=== PATIENT | male | born 1975 | race Caucasian/White ===

== ENCOUNTER 2020-10-21 16:23 | Emergency (ER) | payer OTHER, SELFPAY ==
[2020-10-21] MEDS ORDERED: Tetracaine 0.5% PF 4 ML BOT ONE ×2 (16:38→16:55)
[2020-10-21] MEDS ORDERED: Fluorescein Opthalmic Strip ONE ×2 (16:38→16:55)
[2020-10-21] MEDS ORDERED: Neomycin-Polymyxin-Hc 7.5 ML BOT ONE ×2 (17:12→17:14)
== END 2020-10-21 17:33 | disposition home or self-care (01) ==
LOC: BURERS 16:23
DX: T15.02XA Foreign body in cornea, left eye, initial encounter (principal); F17.210 Nicotine dependence, cigarettes, uncomplicated
CPT/HCPCS: 65222